=== PATIENT | male | born 1970 | race Caucasian/White ===

== ENCOUNTER 2018-09-12 02:18 | Inpatient (IN) | payer SELFPAY ==
[~2018-09-12] VITALS: Ht 167.6 cm; Wt 93.6 kg
[2018-09-12] MEDS ORDERED: SODIUM CHLORIDE 0.9% 1,000 ML IV ONE ×2 (03:00→05:00)
[2018-09-12] MEDS ORDERED: KETOROLAC TROMETHAMINE 30 MG/ML VIAL IVP ONE (03:00)
[2018-09-12] MEDS ORDERED: HYDROmorphone 2 MG/ML SYRINGE IVP ONE (03:00)
[2018-09-12] MEDS ORDERED: ONDANSETRON HCL 4 MG/2 ML VIAL IVP ONE (03:00)
[2018-09-12 03:13] LABS: BASOPHILS % (AUTO) 0.5 % (0.0-2.0); EOSINOPHILS % (AUTO) 0.1 % (1.0-6.0); HEMATOCRIT 43.5 % (41-53); HEMOGLOBIN 14.4 g/dL (13.5-17.5); LYMPHOCYTES # (AUTO) 2.3 K/uL (1.0-4.8); LYMPHOCYTES % (AUTO) 10.5 % (22.0-44.0); MEAN CORPUSCULAR HEMOGLOBIN 27.6 pg (26.0-34.0); MEAN CORPUSCULAR HGB CONC 33.2 G/dL (31.0-37.0); MEAN CORPUSCULAR VOLUME 83 fL (80-100); MONOCYTES # (AUTO) 1.1 K/uL (0.1-1.0); MONOCYTES % (AUTO) 5.2 % (2.0-9.0); NEUTROPHILS # (AUTO) 18.4 K/uL (1.8-7.7); NEUTROPHILS % (AUTO) 83.7 % (40.0-70.0); PLATELET COUNT (AUTO) 309 K/uL (150-450); RED BLOOD CELL COUNT(AUTO) 5.22 MIL/uL (4.50-5.90); RED CELL DISTRIBUTION WIDTH 13.2 % (11.5-14.5)
[2018-09-12] MEDS ORDERED: PIPERACILLIN/TAZO 3.375 GM/D5W 50 ML IV ONE (03:15)
[2018-09-12 03:21] LABS: ANION GAP 9 mmol/L (8-16); CALCIUM, TOTAL 9.2 mg/dL (8.8-10.5); CARBON DIOXIDE 29 mmol/L (22-29); CHLORIDE 98 mmol/L (98-107); GLOMERULAR FILTR. RATE CALC > 60 mL/min (>60); GLUCOSE,RANDOM 140 mg/dL (70-110); POTASSIUM 3.8 mmol/L (3.5-5.1); SODIUM SERUM 136 mmol/L (136-145); UREA NITROGEN, BLOOD 19 mg/dL (7-18)
[2018-09-12] MEDS ORDERED: SODIUM CHLORIDE 0.9% 100 ML ONE (03:25)
[2018-09-12] MEDS ORDERED: IOVERSOL 350 MG/ML 150 ML VIAL ONE (03:25)
[2018-09-12 03:27] LABS: ALANINE AMINOTRANSFERASE 99 U/L (12-78); ALBUMIN 4.1 g/dL (3.4-5.0); ALKALINE PHOSPHATASE 53 U/L (46-116); ASPARTATE AMINOTRANSFERASE 31 U/L (15-37); BILIRUBIN,TOTAL 0.6 mg/dL (0.1-1.0); LIPASE 96 U/L (73-393)
[2018-09-12] MEDS ORDERED: ONDANSETRON HCL 4 MG/2 ML VIAL IVP PRN (05:15)
[2018-09-12] MEDS ORDERED: ACETAMINOPHEN 325 MG TABLET PO PRN (05:15)
[2018-09-12] MEDS ORDERED: MORPHINE SULFATE 2 MG/ML SYRINGE IVP PRN ×2 (05:15→10:15)
[2018-09-12] MEDS: PIPERACILLIN/TAZO 3.375 GM/D5W 50 ML IV SCH ×3 (05:57→20:04)
[2018-09-12] MEDS: SODIUM CHLORIDE 0.9% 1,000 ML IV SCH ×2 (05:57→14:44)
[2018-09-12 07:21] LABS: APPEARANCE,URINE CLEAR (CLEAR); BILIRUBIN,URINE NEGATIVE (NEGATIVE); GLUCOSE, URINE (UA) NEGATIVE (NEGATIVE); KETONES,URINE TRACE mg/dL (NEGATIVE); LEUKOCYTE ESTERASE ,URINE NEGATIVE (NEGATIVE); NITRATE,URINE NEGATIVE (NEGATIVE); OCCULT BLOOD,URINE NEGATIVE (NEGATIVE); PROTEIN,URINE TRACE (NEGATIVE); UROBILINOGEN,URINE 0.2 mg/dL (<=1.0)
[2018-09-12] MEDS: PANTOPRAZOLE SODIUM 40 MG/VIAL IVP SCH (08:06)
[2018-09-12] MEDS ORDERED: RINGERS SOLUTION,LACTATED 1,000 ML IV ONE (08:59)
[2018-09-12] MEDS ORDERED: MEPERIDINE-PF 25 MG/ML VIAL IVP PRN (10:00)
[2018-09-12] MEDS ORDERED: FentaNYL CITRATE-PF 100 MCG/2 ML VIAL IVP PRN (10:00)
[2018-09-12] MEDS ORDERED: HYDROmorphone 2 MG/ML SYRINGE IVP PRN (10:00)
[2018-09-12] MEDS ORDERED: HYDROCODONE/ACETAMINOPHEN 5-325 MG TABLET PO PRN (10:15)
[2018-09-12] MEDS ORDERED: IBUPROFEN 600 MG TABLET PO PRN (10:15)
[2018-09-12] MEDS ORDERED: ACETAMINOPHEN 500 MG TABLET PO PRN (10:15)
[2018-09-12] MEDS ORDERED: MEPERIDINE-PF 25 MG/ML VIAL ONE (10:33)
[2018-09-12] MEDS ORDERED: HYDROmorphone 2 MG/ML SYRINGE ONE (10:38)
[2018-09-12 11:50] VITALS: BP 110/73
[2018-09-12] MEDS ORDERED: FentaNYL CITRATE-PF 100 MCG/2 ML VIAL IVP ONE (12:00)
[2018-09-12] MEDS ORDERED: MIDAZOLAM HCL 2 MG/2 ML VIAL IVP ONE (12:00)
[2018-09-12 15:34] VITALS: BP 114/78
[2018-09-12] MEDS: OXYGEN THERAPY IH SCH (20:00)
[2018-09-12 20:04] VITALS: BP 127/74
[2018-09-12] MEDS ORDERED: IBUPROFEN 800 MG TABLET PO PRN (21:46)
[2018-09-13 00:21] VITALS: BP 126/67
[2018-09-13] MEDS: SODIUM CHLORIDE 0.9% 1,000 ML IV SCH (01:19)
[2018-09-13] MEDS: PIPERACILLIN/TAZO 3.375 GM/D5W 50 ML IV SCH ×2 (02:50→07:54)
[2018-09-13 04:00] VITALS: BP 122/75
[2018-09-13 06:02] LABS: BASOPHILS % (AUTO) 0.4 % (0.0-2.0); EOSINOPHILS % (AUTO) 1.7 % (1.0-6.0); HEMATOCRIT 38.1 % (41-53); HEMOGLOBIN 12.8 g/dL (13.5-17.5); LYMPHOCYTES # (AUTO) 2.8 K/uL (1.0-4.8); MEAN CORPUSCULAR HEMOGLOBIN 28.2 pg (26.0-34.0); MEAN CORPUSCULAR HGB CONC 33.5 G/dL (31.0-37.0); MEAN CORPUSCULAR VOLUME 84 fL (80-100); MONOCYTES # (AUTO) 0.7 K/uL (0.1-1.0); MONOCYTES % (AUTO) 7.7 % (2.0-9.0); NEUTROPHILS # (AUTO) 5.9 K/uL (1.8-7.7); NEUTROPHILS % (AUTO) 61.2 % (40.0-70.0); PLATELET COUNT (AUTO) 241 K/uL (150-450); RED BLOOD CELL COUNT(AUTO) 4.52 MIL/uL (4.50-5.90); RED CELL DISTRIBUTION WIDTH 13.2 % (11.5-14.5)
[2018-09-13 06:05] LABS: ANION GAP 6 mmol/L (8-16); CALCIUM, TOTAL 8.2 mg/dL (8.8-10.5); CARBON DIOXIDE 30 mmol/L (22-29); CHLORIDE 107 mmol/L (98-107); CREATININE 1.08 mg/dL (0.60-1.30); GLOMERULAR FILTR. RATE CALC > 60 mL/min (>60); GLUCOSE,RANDOM 112 mg/dL (70-110); POTASSIUM 4.4 mmol/L (3.5-5.1); SODIUM SERUM 143 mmol/L (136-145); UREA NITROGEN, BLOOD 12 mg/dL (7-18)
[2018-09-13] MEDS ORDERED: GLYCOPYRROLATE 0.2 MG/ML VIAL IM ONE (06:58)
[2018-09-13] MEDS ORDERED: KETOROLAC TROMETHAMINE 60 MG/2 ML VIAL IM ONE (06:58)
[2018-09-13] MEDS ORDERED: SUCCINYLCHOLINE CHLORIDE 20 MG/ML 10 ML VIAL IVP ONE (06:58)
[2018-09-13] MEDS ORDERED: ONDANSETRON HCL 4 MG/2 ML VIAL IVP ONE (06:58)
[2018-09-13] MEDS ORDERED: LIDOCAINE/PF 2% 5 ML VIAL INJ ONE (06:58)
[2018-09-13] MEDS ORDERED: NEOSTIGMINE METHYLSULFATE 1 MG/ML 10 ML VIAL IVP ONE (06:58)
[2018-09-13] MEDS ORDERED: ROCURONIUM BROMIDE 10 MG/ML 5 ML VIAL IVP ONE (06:58)
[2018-09-13] MEDS ORDERED: PROPOFOL 1% 20 ML VIAL IVP ONE (06:58)
[2018-09-13] MEDS: PANTOPRAZOLE SODIUM 40 MG/VIAL IVP SCH (07:52)
[2018-09-13] MEDS: OXYGEN THERAPY IH SCH (07:54)
[2018-09-13 08:09] VITALS: BP 114/79
[2018-09-13 11:40] VITALS: BP 116/74
== END 2018-09-13 13:40 | disposition home or self-care (01) | DRG 342 ==
LOC: EMS 02:20 → 5N 08:50
PROVIDERS: ADMIT Internal Medicine; ATTEND Internal Medicine
PROC: 0DTJ4ZZ Resection of Appendix, Percutaneous Endoscopic Approach (ICD-10-PCS; principal; 2018-09-12 09:00)
DX: K35.891 Other acute appendicitis without perforation, with gangrene (principal); R65.10 Systemic inflammatory response syndrome (SIRS) of non-infectious origin without acute organ dysfunction; Z68.33 Body mass index [BMI] 33.0-33.9, adult; E66.9 Obesity, unspecified; K52.9 Noninfective gastroenteritis and colitis, unspecified
CPT/HCPCS: 74177; 87040; 88304; 96365; 96375; C9113; G0238; G0378; J0330; J1170; J1885; J2175; J2250; J2405; J2543; J2704; J3010; J3490; J7030; J7050; J7120